=== PATIENT | female | born 1940 | race Caucasian/White ===

== ENCOUNTER → 2022-01-11 | Outpatient (CLI) | payer MEDICARE ==
[~2022-01-11] MED LIST: ACYC800 PO
[2022-01-12 10:37] LABS: Stool Occult Blood Guaiac 1 Neg (Neg)
== END | disposition home or self-care (01) ==
LOC: LAB SHORT 11:05 → LAB 11:05
PROVIDERS: Nurse Practitioner Family
DX: D64.9 Anemia, unspecified (principal)
CPT/HCPCS: 82270

== ENCOUNTER 2022-08-25 09:20 | Day surgery (SDC) | payer MEDICARE ==
[~2022-08-25] VITALS: Ht 157.5 cm; Wt 54.4 kg
[~2022-08-25 09:20] MED LIST changes: +AMLO5 PO; +ASPIR 8181 M1 PO; +Aspir 8181 MG PO; +TERB250 PO
--- NOTE | 2022-08-25 10:17 | NUR ---
08/25/22 1017 Lorraine Mosquera AT 1010 PLEDGET AT 1011
== END 2022-08-25 11:27 | disposition home or self-care (01) ==
LOC: ORSCSDS 09:20
PROVIDERS: Ophthalmology
PROC: 08DJ3ZZ Extraction of Right Lens, Percutaneous Approach (ICD-10-PCS; principal; 2022-08-25 10:30)
DX: H25.13 Age-related nuclear cataract, bilateral (principal); I10 Essential (primary) hypertension; Z79.01 Long term (current) use of anticoagulants; Z79.899 Other long term (current) drug therapy
CPT/HCPCS: J2001; J2250; J3010; J3301; J7040; V2632